=== PATIENT | female | born 1950 ===

== ENCOUNTER 2020-08-24 13:16 | Emergency (ER) | payer OTHER ==
[~2020-08-24] VITALS: Ht 177.8 cm; Wt 120.2 kg
[2020-08-24] MEDS ORDERED: METFORMIN HCL1000 M3 (14:08)
[2020-08-24] MEDS ORDERED: LOSARTAN POTAS100 MG (14:08)
[2020-08-24] MEDS ORDERED: HYDROCHLOROTHIA25 MG (14:09)
[2020-08-24] MEDS ORDERED: PRAVASTATIN SOD20 MG (14:09)
[2020-08-24] MEDS ORDERED: BUFFERED ASPIR325 M3 (14:13)
[2020-08-24] MEDS ORDERED: HYDROCHLOROTHIA25 MG PO (17:41)
[2020-08-24] MEDS ORDERED: DICLOFENAC SODI75 MG PO (17:41)
== END 2020-08-24 17:51 | disposition home or self-care (01) ==
LOC: ER 13:16
DX: M54.5 Low back pain (principal)